=== PATIENT | female | born 1960 | race Two or more races ===

== ENCOUNTER 2019-01-17 09:34 | Inpatient (IN) | payer MEDICARE, OTHER ==
[~2019-01-17] VITALS: Ht 167.6 cm; Wt 124.7 kg
[2019-01-17] MEDS ORDERED: SODIUM CHLORIDE 0.9% 1,000 ML IV ONE ×2 (10:09)
[2019-01-17] MEDS ORDERED: PROMETHAZINE HCL 25 MG/ML 1ML IV ONE (10:15)
[2019-01-17 10:46] LABS: Basophils # (auto) 0 uL; Basophils % (auto) 0.2 % (0.0-2.0); Eosinophils # (auto) 0 uL; Eosinophils % (auto) 0.2 % (0.0-7.0); Hematocrit 48.5 % (36.0-46.0); Hemoglobin 16.5 g/dL (12.2-16.2); Lymphocytes # (auto) 0.6 uL; Lymphocytes % (auto) 6.5 % (10.0-50.0); Mean Corpuscular Hemoglobin 30.2 pg (28.0-32.0); Mean Corpuscular Hgb Conc. 34.1 g/dL (32.0-36.0); Mean Corpuscular Volume 88.5 fL (80.0-100.0); Monocytes # (auto) 0.6 uL; Monocytes % (auto) 6.4 % (0.0-12.0); Neutrophils # (auto) 7.9 uL; Neutrophils % (auto) 86.7 % (37.0-80.0); Platelet Count (auto) 147 10^3/uL (140-450); Red Blood Cells 5.48 10^6/uL (4.0-5.20); Red Cell Distribution Width 16.3 % (11.8-14.3); White Blood Cell 9.1 10^3/uL (4.4-10.8)
[2019-01-17 11:01] LABS: INR 1.23 (0.9-1.15); Partial Thromboplastin Time 39.9 sec (23.64-32.05)
[2019-01-17 11:04] LABS: Albumin 3.7 g/dL (3.4-5.0); BUN/Creatinine Ratio 32.3; Calcium 9.2 mg/dL (8.5-10.1); Potassium 4.2 mmol/L (3.5-5.1)
[2019-01-17 11:06] LABS: Bilirubin, Total 1.4 mg/dL (0.2-1.0); Total Protein 7.8 g/dL (6.4-8.2)
[2019-01-17] MEDS ORDERED: TEMAZEPAM 15 MG CAP PO PRN (16:15)
[2019-01-17] MEDS ORDERED: DEXTROSE (50%) 50ML SYRG IV PRN (16:15)
[2019-01-17] MEDS ORDERED: MORPHINE SULF INJ 2 MG/ML SYRINGE 1ML IV PRN (16:15)
[2019-01-17] MEDS ORDERED: NITROGLYCERIN 0.4 MG SL TAB SL PRN (16:15)
[2019-01-17] MEDS ORDERED: cefTRIAXone 1GM/50ML D5W 50 ML IV ONE (16:15)
[2019-01-17] MEDS ORDERED: MORPHINE SULFATE 4 MG/ML SYR/VIAL IV PRN (16:15)
[2019-01-17] MEDS ORDERED: ACETAMINOPHEN 500 MG TAB PO PRN (16:15)
[2019-01-17] MEDS: SODIUM CHLORIDE 0.9% 1,000 ML IV SCH ×2 (16:25→19:00)
[2019-01-17] MEDS: ACCU-CHEK COMFORT CURVE STRIP VI SCH ×2 (16:31→21:54)
[2019-01-17] MEDS: InsuLIN REG 1unit/0.01ml Soln (100units/ml) SC SCH ×2 (16:43→22:14)
[2019-01-17] MEDS: traMADol HCL 50 MG TAB PO PRN ×2 (16:56→23:55)
[2019-01-17] MEDS ORDERED: LABETALOL HCL 5 MG/ML ML 20ML VIAL IV PRN (17:00)
[2019-01-17] MEDS ORDERED: ENOXAPARIN SOD 80 MG/0.8ML SYRINGE SC ONE (17:00)
[2019-01-17] MEDS ORDERED: ALUM & MAG HYDROX-SIMETH LIQ(MAALOX) 30 ML PO ONE (17:00)
[2019-01-17] MEDS ORDERED: ENOXAPARIN SOD 80 MG/0.8ML SYRINGE SC SCH (17:08)
--- NOTE | 2019-01-17 18:42 | NUR ---
Patient Arrived On Unit Pt arrived on unit via ED via wheelchair. Pt able to ambulate to bed without difficulty. Addendum: 01/17/19 at 1857 by DORIS WELSH RN RN VS UPON ADMISSION 92% ON RA, 124 HR, RR16,BP OF 126/90, 6/10 PAIN LOCATED TO ABDOMEN PT IS 5'4
[2019-01-17 20:15] VITALS: BP 137/72
[2019-01-17] MEDS: metroNIDAZOLE 500MG/100ML 100 ML IV SCH (21:56)
[2019-01-17] MEDS: METOPROLOL TARTRATE 50 MG TAB PO SCH (21:56)
[2019-01-17] MEDS: HYDROXYCHLOROQUINE SULFATE 200 MG TAB PO SCH (21:57)
[2019-01-17 22:00] VITALS: BP 137/72
[2019-01-17] MEDS: ALUM & MAG HYDROX-SIMETH LIQ(MAALOX) 30 ML PO PRN (22:10)
[2019-01-18] MEDS: PROMETHAZINE HCL 25 MG/ML 1ML IV PRN ×3 (05:18→18:50)
--- NOTE | 2019-01-18 05:20 | NUR ---
IV insertion IV access obtained, via clean sterile technique by inserting 20 gauge catheter at right forearm on first attempt. IV secured properly. No trauma to site. Patient tolerated well. Addendum: 01/18/19 at 0527 by Chacha Urias RN Left forearm
--- NOTE | 2019-01-18 05:25 | NUR ---
IV removal IV 20g DC'd right wrist with clean sterile technique, catheter fully intact. Pressure dressing applied to site. Patient tolerated well.
[2019-01-18 06:01] LABS: Basophils # (auto) 0 uL; Basophils % (auto) 0.2 % (0.0-2.0); Eosinophils # (auto) 0.1 uL; Eosinophils % (auto) 0.9 % (0.0-7.0); Hematocrit 39.8 % (36.0-46.0); Hemoglobin 13.8 g/dL (12.2-16.2); Lymphocytes % (auto) 11.6 % (10.0-50.0); Mean Corpuscular Hemoglobin 30.7 pg (28.0-32.0); Mean Corpuscular Hgb Conc. 34.7 g/dL (32.0-36.0); Mean Corpuscular Volume 88.5 fL (80.0-100.0); Monocytes # (auto) 0.8 uL; Monocytes % (auto) 9.6 % (0.0-12.0); Neutrophils # (auto) 6.5 uL; Neutrophils % (auto) 77.7 % (37.0-80.0); Platelet Count (auto) 127 10^3/uL (140-450); Red Cell Distribution Width 15.9 % (11.8-14.3); White Blood Cell 8.3 10^3/uL (4.4-10.8)
[2019-01-18 06:27] LABS: Albumin 2.9 g/dL (3.4-5.0); BUN/Creatinine Ratio 37.8; Calcium 8.3 mg/dL (8.5-10.1); Potassium 4.4 mmol/L (3.5-5.1)
[2019-01-18 06:30] LABS: Bilirubin, Total 0.7 mg/dL (0.2-1.0); Total Protein 6.3 g/dL (6.4-8.2)
[2019-01-18] MEDS: InsuLIN REG 1unit/0.01ml Soln (100units/ml) SC SCH ×4 (06:38→22:00)
[2019-01-18] MEDS: ACCU-CHEK COMFORT CURVE STRIP VI SCH ×4 (06:38→22:25)
[2019-01-18] MEDS: metroNIDAZOLE 500MG/100ML 100 ML IV SCH ×3 (06:39→22:19)
[2019-01-18] MEDS: ENOXAPARIN SOD 80 MG/0.8ML SYRINGE SC SCH (06:39)
--- NOTE | 2019-01-18 07:40 | NUR ---
Opening Note Assumed pt care from NOC nurse. Pt is a/ox4 with no s/s of distress or SOB. Pt is currently laying upright in bed with no complaints at this time. Discussed POC with p; pt verbalized understanding. Safety measures maintained with call light within reach, bed in lowest position and side rails up. Will continue to monitor for changes q1hr and prn.
[2019-01-18] MEDS: SODIUM CHLORIDE 0.9% 1,000 ML IV SCH ×2 (08:09→16:41)
[2019-01-18 08:24] LABS: INR 1.23 (0.9-1.15)
[2019-01-18] MEDS: cefTRIAXone 1GM/50ML D5W 50 ML IV SCH (08:28)
--- NOTE | 2019-01-18 08:35 | NUR ---
Rapid Influenza A & B Sent To Lab
[2019-01-18 09:00] VITALS: BP 132/79
[2019-01-18] MEDS: HYDROXYCHLOROQUINE SULFATE 200 MG TAB PO SCH ×2 (09:27→22:19)
[2019-01-18] MEDS: METOPROLOL TARTRATE 50 MG TAB PO SCH ×2 (09:28→22:19)
[2019-01-18] MEDS: PANTOPRAZOLE 40 MG TAB PO SCH (09:28)
--- NOTE | 2019-01-18 11:40 | NUR ---
US TECH AT BEDSIDE FOR ECHO
--- NOTE | 2019-01-18 11:50 | NUR ---
Dr Boss at Bedside Spoke to pt about POC. New orders for stool sample. Provided pt with specimen cups. Pt instructed on need for samples; pt verbalized understanding.
[2019-01-18 13:00] VITALS: BP 127/69
--- NOTE | 2019-01-18 13:44 | NUR ---
ERYTHEMA NOTED UNDER PT'S BREASTS Erythema noted underneath both pt's breasts. Provided pt with z-guard cream. Will continue to monitor for changes. Pt states that the rash does not cause her pain at this time.
--- NOTE | 2019-01-18 13:44 | NUR ---
UA SENT TO LAB
[2019-01-18] MEDS: ALUM & MAG HYDROX-SIMETH LIQ(MAALOX) 30 ML PO PRN (14:31)
[2019-01-18] MEDS: traMADol HCL 50 MG TAB PO PRN (14:31)
[2019-01-18] MEDS: SUCRALFATE 1 GM/10 ML ORAL SUSP PO SCH ×2 (16:30→22:19)
[2019-01-18 16:39] LABS: Urine Bacteria FEW /hpf (None Seen); Urine Blood Negative /uL (Negative); Urine Specific Gravity 1.022 (1.001-1.035); Urine WBC 1 /hpf (0 - 5)
[2019-01-18 16:59] LABS: Alcohol, Urine < 3.0 mg/dL (0-5); Amphetamine Screen, Urine NEGATIVE (NEGATIVE); Barbiturate Scree,Urine NEGATIVE (NEGATIVE); Benzodiazephine Screen, Urine NEGATIVE (NEGATIVE); Cannabinoid Screen, Urine NEGATIVE (NEGATIVE); Cocaine Screen, Urine NEGATIVE (NEGATIVE); Opiate Scree,Urine NEGATIVE (NEGATIVE); Phencyclidine Screen, Urine NEGATIVE (NEGATIVE)
[2019-01-18 17:00] VITALS: BP 116/72
[2019-01-18 22:00] VITALS: BP 116/62
[2019-01-19] MEDS: traMADol HCL 50 MG TAB PO PRN (03:50)
[2019-01-19] MEDS: SODIUM CHLORIDE 0.9% 1,000 ML IV SCH ×4 (03:56→23:30)
[2019-01-19 05:00] VITALS: BP 110/58
[2019-01-19 06:08] LABS: Basophils # (auto) 0 uL; Basophils % (auto) 0.6 % (0.0-2.0); Eosinophils # (auto) 0.1 uL; Eosinophils % (auto) 1.4 % (0.0-7.0); Hematocrit 36.2 % (36.0-46.0); Hemoglobin 12.4 g/dL (12.2-16.2); Lymphocytes # (auto) 0.8 uL; Lymphocytes % (auto) 15.2 % (10.0-50.0); Mean Corpuscular Hemoglobin 30.5 pg (28.0-32.0); Mean Corpuscular Hgb Conc. 34.2 g/dL (32.0-36.0); Mean Corpuscular Volume 89.3 fL (80.0-100.0); Monocytes # (auto) 0.7 uL; Monocytes % (auto) 12.1 % (0.0-12.0); Neutrophils # (auto) 3.8 uL; Neutrophils % (auto) 70.7 % (37.0-80.0); Nucleated Red Blood Cells % 0.1 %; Platelet Count (auto) 111 10^3/uL (140-450); Red Blood Cells 4.06 10^6/uL (4.0-5.20); Red Cell Distribution Width 15.9 % (11.8-14.3); White Blood Cell 5.4 10^3/uL (4.4-10.8)
[2019-01-19 06:19] LABS: BUN/Creatinine Ratio 26.7; Calcium 8.2 mg/dL (8.5-10.1)
[2019-01-19] MEDS: ENOXAPARIN SOD 80 MG/0.8ML SYRINGE SC SCH (06:29)
[2019-01-19] MEDS: metroNIDAZOLE 500MG/100ML 100 ML IV SCH ×3 (06:29→21:50)
[2019-01-19] MEDS: SUCRALFATE 1 GM/10 ML ORAL SUSP PO SCH ×4 (06:30→21:48)
[2019-01-19] MEDS: InsuLIN REG 1unit/0.01ml Soln (100units/ml) SC SCH ×4 (06:36→21:51)
[2019-01-19] MEDS: ACCU-CHEK COMFORT CURVE STRIP VI SCH ×4 (06:36→21:50)
--- NOTE | 2019-01-19 07:38 | NUR ---
Opening Note Assumed pt care from [facility] nurse. Pt is a/ox4 with no s/s of distress or SOB. Pt is currently laying in bed with no complaints at this time. Pt instructed NPO after clear liquid breakfast for scheduled EGD today; pt verbalized understanding. Discussed POC with pt; Safety measures maintained with call light within reach, bed in lowest position and side rails up. Will continue to monitor for changes q1hr and prn.
[2019-01-19] MEDS: cefTRIAXone 1GM/50ML D5W 50 ML IV SCH (08:29)
[2019-01-19 09:00] VITALS: BP 125/64
[2019-01-19] MEDS: PANTOPRAZOLE 40 MG TAB PO SCH ×2 (09:52→21:50)
[2019-01-19] MEDS: METOPROLOL TARTRATE 50 MG TAB PO SCH ×2 (09:59→21:49)
[2019-01-19] MEDS: HYDROXYCHLOROQUINE SULFATE 200 MG TAB PO SCH ×2 (09:59→21:49)
--- NOTE | 2019-01-19 10:29 | NUR ---
DR BRIZUELA AT BEDSIDE ORDERS FOR MAIRA FOR PT'S CONGESTION. WILL IMPLEMENT AND CONTINUE TO MONITOR.
[2019-01-19] MEDS ORDERED: diphenhdrAMINE HCL 50 MG/1 ML VL ONE (11:00)
[2019-01-19] MEDS ORDERED: LIDOCAINE VISCOUS 2% 15ML UD ONE (11:00)
[2019-01-19] MEDS: Glucerna Carbsteady SHAKE Vanilla 8oz PO SCH ×2 (12:00→18:04)
[2019-01-19 13:00] VITALS: BP 141/67
[2019-01-19] MEDS: fentaNYL CITRATE 100 MCG/2 ML VL ONE ×2 (14:31→14:37)
[2019-01-19] MEDS: MIDAZOLAM HCL 5 MG/ML-1ML VIAL ONE ×2 (14:31→14:37)
--- NOTE | 2019-01-19 14:39 | NUR ---
PT TAKEN DOWN TO PRE-OP FOR EGD PT IS A/OX4 WITH NO S/S OF DISTRESS OR SOB
--- NOTE | 2019-01-19 15:15 | NUR ---
Patient Back On Unit from OR Pt back on unit. Pt is a/ox4 with no s/s of distress or SOB. Pt currently on 2L NC. Pt has generalized complaints of a sore-throat. Provided pt with jello, tea, as well as chicken-broth. Will continue to monitor.
[2019-01-19] MEDS: FEXOFENADINE HCL 60 MG TAB PO SCH ×2 (15:28→21:48)
[2019-01-19 17:00] VITALS: BP 123/70
--- NOTE | 2019-01-19 18:55 | NUR ---
IV Insertion and Removal 20G inserted to pt's R FA/Wrist. 2 attempts made. Clean sterile technique used and patient tolerated insertion well. IV to pt's L FA removed due to infiltration. Catheter removed fully intact, site is asymptomatic. Pressure applied to site for 3 minutes with gauze and then wrapped in coban. Pt instructed to keep dressing on for 30 minutes; pt verbalized understanding.
--- NOTE | 2019-01-19 19:30 | NUR ---
Opening Shift Note Assumed care of patient, pt is laying in bed awake, alert and oriented x 4. Respirations are normal and non-labored, no S/S of distress/ or SOB. Pt denies any pain at the moment and complaints of nausea. Instructed on POC and to call for assist, placed call light within reach and repositioned patient. Safety measures set in place, patient attach to alarm security or surveillance monitor and bed set at lowest position. Will continue to monitor for changes Q1hr and PRN. Signed: 01/19/19 at 2113 by MANN ANGULO SN <Co-Signature Required> Co-Signed: 01/19/19 at 2113 by Eri Sanford RN
[2019-01-19] MEDS: PROMETHAZINE HCL 25 MG/ML 1ML IV PRN (20:44)
[2019-01-19 21:00] VITALS: BP_SYST 123; BP_SYST 153; BP_DIAS 72
[2019-01-20 05:00] VITALS: BP 144/75
[2019-01-20] MEDS: SUCRALFATE 1 GM/10 ML ORAL SUSP PO SCH ×4 (06:16→21:54)
[2019-01-20] MEDS: ENOXAPARIN SOD 80 MG/0.8ML SYRINGE SC SCH (06:16)
[2019-01-20] MEDS: ACCU-CHEK COMFORT CURVE STRIP VI SCH ×4 (06:18→21:53)
[2019-01-20] MEDS: InsuLIN REG 1unit/0.01ml Soln (100units/ml) SC SCH ×4 (06:18→21:53)
[2019-01-20] MEDS: metroNIDAZOLE 500MG/100ML 100 ML IV SCH ×3 (06:18→21:54)
[2019-01-20 06:28] LABS: Hematocrit 36.3 % (36.0-46.0); Hemoglobin 12.4 g/dL (12.2-16.2); Mean Corpuscular Hemoglobin 30.4 pg (28.0-32.0); Mean Corpuscular Hgb Conc. 34.1 g/dL (32.0-36.0); Mean Corpuscular Volume 89.3 fL (80.0-100.0); Platelet Count (auto) 104 10^3/uL (140-450); Red Blood Cells 4.07 10^6/uL (4.0-5.20); White Blood Cell 4.4 10^3/uL (4.4-10.8)
[2019-01-20 06:43] LABS: BUN/Creatinine Ratio 18.8; Calcium 8.7 mg/dL (8.5-10.1)
[2019-01-20 06:48] LABS: Basophils % (manual) 0 (0.0-2.0); Blast Cells 0; Eosinophils % (manual) 0 (0-7); Myelocytes % 0; Promyelocytes % 0; Reactive Lymphocytes 0
[2019-01-20 07:24] LABS: Band Neutrophils % (manual) 1; Lymphocytes % (manual) 27 (10.0-50.0); Metamyelocytes % 1; Monocytes % (manual) 9 (0-12)
[2019-01-20] MEDS: cefTRIAXone 1GM/50ML D5W 50 ML IV SCH (07:53)
[2019-01-20 09:00] VITALS: BP 140/77
[2019-01-20] MEDS: FEXOFENADINE HCL 60 MG TAB PO SCH ×2 (09:39→21:54)
[2019-01-20] MEDS: PANTOPRAZOLE 40 MG TAB PO SCH ×2 (09:39→21:57)
[2019-01-20] MEDS: METOPROLOL TARTRATE 50 MG TAB PO SCH ×2 (09:40→21:56)
[2019-01-20] MEDS: HYDROXYCHLOROQUINE SULFATE 200 MG TAB PO SCH ×2 (09:41→21:56)
[2019-01-20] MEDS: Glucerna Carbsteady SHAKE Vanilla 8oz PO SCH ×3 (09:43→21:30)
--- NOTE | 2019-01-20 10:10 | NUR ---
DR. BRIZUELA WAS IN TO SEE PT AND MD LEFT NEW ORDERS. PT STATED THAT SHE IS STILL HAVING LOOSE STOOL. PT NOTED TO HAVE SOME DIFFICULTY GETTING OUT OF BED AT TIMES BUT WAS AMBULATING IN HER ROOM WITH STEADY GAIT. WILL CONTINUE TO MONITOR PT.
--- NOTE | 2019-01-20 11:02 | NUR ---
WOUND CARE NOTE: Wound care in to see patient per wound care request regarding skin integrity issue that are noted present on admission. Bedside nurse took photograph of patient's skin issue for reference. Patient is 58 y/o female with admitting diagnosis of Abd Pain, Gastroenteritis, Acute Kidney Injury. Patient is resting in bed in Rm. 249A. Patient is awake,alert and oriented. She's able to turn and reposition self. Her Raf score is 19. Patient's under breast has redness consistent with intertrigo, she receiving BID cleaning and application of Antifungal clear ointment. Patient's bilateral groin, inner thighs, inner buttocks and intragluteal fold has redness consistent with moisture associated skin damage. Patient reported that "it started few days ago, Saturday" she added that she's has diarrhea recently. Priya care given, applied Z Guard cream to patient's reddened skin to bilateral groin, thighs and inner buttocks. Patient tolerated well. Bed in low position, call cosme within reach with all safety precautions in placed. Patient and family education given regarding skin/wound care, verbalized understanding. RECOMMENDATION: BID/PRN cleaning and application of Antifungal clear ointment to under breast intertrigo; Z Guard cream to groins, thighs and inner buttocks moisture associated skin damage per MD order, redistribute pressure points with pillows,continue monitoring by wound care while patient is hospitalized Addendum: 01/20/19 at 1240 by Iliana Medel RN Amended: Links added.
[2019-01-20] MEDS: SODIUM CHLORIDE 0.9% 1,000 ML IV SCH (11:22)
[2019-01-20 13:00] VITALS: BP 133/81
--- NOTE | 2019-01-20 13:48 | NUR ---
NUTRITION ASSESSMENT NOTES Please refer to link notes of nutrition screen form filed under the intervention section of the plan of care for further details. Est. Needs based on AdBW (75 kg): 1500 kcal to 1850 kcal (20-25 kcal/kgAdBW), 75 gms to 90 gms pro (1.0-1.2 gms/kgAdBW). Will continue to monitor pertinent labs and reassess nutrient need prn Thank you. Addendum: 01/20/19 at [address] Amended: Links added.
--- NOTE | 2019-01-20 17:34 | NUR ---
PT REPORTS THAT SHE IS DOING FINE AND DOES NOT NEED P.T. INTERVENTION.
[2019-01-20 17:56] VITALS: BP 141/73
--- NOTE | 2019-01-20 19:00 | NUR ---
Opening Shift Note Assumed care of patient, awake and alert. No S/S of distress/SOB or pain. Instructed on POC and to call for assist PRN, will continue to monitor for changes Q1hr and PRN.
[2019-01-20 21:00] VITALS: BP 141/80
--- NOTE | 2019-01-20 21:59 | NUR ---
Patient refused 2200 accu-check and insulin. Patient stated, "I am not diabetic and I never will be diabetic". Patient informed RN she will not want her 0700 accu-check or insulin as well. RN provided teaching to patient in regards to orders and BS checks. Patient verbalized understanding and proceeded with not wanting her BS checked.
[2019-01-21] MEDS: SODIUM CHLORIDE 0.9% 1,000 ML IV SCH ×3 (00:09→16:09)
[2019-01-21 05:00] VITALS: BP 152/88
[2019-01-21] MEDS: metroNIDAZOLE 500MG/100ML 100 ML IV SCH ×2 (05:50→14:00)
[2019-01-21] MEDS ORDERED: ENOXAPARIN SOD 120 MG/0.8 ML SYRINGE SC SCH (06:00)
[2019-01-21] MEDS: SUCRALFATE 1 GM/10 ML ORAL SUSP PO SCH ×3 (06:31→17:00)
[2019-01-21] MEDS: ACCU-CHEK COMFORT CURVE STRIP VI SCH ×3 (06:32→17:00)
[2019-01-21] MEDS: InsuLIN REG 1unit/0.01ml Soln (100units/ml) SC SCH ×3 (06:32→17:00)
[2019-01-21 07:27] LABS: Hematocrit 37.3 % (36.0-46.0); Hemoglobin 12.7 g/dL (12.2-16.2); Mean Corpuscular Hemoglobin 30.5 pg (28.0-32.0); Mean Corpuscular Hgb Conc. 34.1 g/dL (32.0-36.0); Mean Corpuscular Volume 89.3 fL (80.0-100.0); Platelet Count (auto) 132 10^3/uL (140-450); Red Blood Cells 4.17 10^6/uL (4.0-5.20); Red Cell Distribution Width 15.8 % (11.8-14.3); White Blood Cell 5.4 10^3/uL (4.4-10.8)
[2019-01-21 07:41] LABS: Calcium 8.5 mg/dL (8.5-10.1); Potassium 3.8 mmol/L (3.5-5.1)
[2019-01-21 07:45] LABS: BUN/Creatinine Ratio 12.7
[2019-01-21 07:58] LABS: Basophils % (manual) 0 (0.0-2.0); Blast Cells 0; Myelocytes % 0; Promyelocytes % 0; Reactive Lymphocytes 0
[2019-01-21 08:00] VITALS: BP 167/83
[2019-01-21] MEDS: Glucerna Carbsteady SHAKE Vanilla 8oz PO SCH ×2 (08:00→12:00)
[2019-01-21 08:49] LABS: Band Neutrophils % (manual) 2; Eosinophils % (manual) 3 (0-7); Lymphocytes % (manual) 23 (10.0-50.0); Metamyelocytes % 1; Monocytes % (manual) 14 (0-12)
[2019-01-21 09:00] VITALS: BP 167/83
[2019-01-21] MEDS: HYDROXYCHLOROQUINE SULFATE 200 MG TAB PO SCH (09:19)
[2019-01-21] MEDS: FEXOFENADINE HCL 60 MG TAB PO SCH (09:19)
[2019-01-21] MEDS: PANTOPRAZOLE 40 MG TAB PO SCH (09:19)
[2019-01-21] MEDS: cefTRIAXone 1GM/50ML D5W 50 ML IV SCH (09:20)
[2019-01-21] MEDS: METOPROLOL TARTRATE 50 MG TAB PO SCH (09:20)
[2019-01-21 11:13] VITALS: BP 167/83
[2019-01-21 13:00] VITALS: BP 145/67
--- NOTE | 2019-01-21 13:57 | NUR ---
DISCHARGE NOTE PATIENT ALERT AND ORIENTED X4 ALL DISCHARGE INSTRUCTIONS GIVEN ALL QUESTIONS AND CONCERNS ADDRESSED. PATIENT STATED HER RIDE WILL NOT BE ABLE TO COME TILL 4:00PM. PATIENT DENIES ANY DISTRESS OR SOB AT THIS TIME. [facility] FILLING PATIENT PRESCRIPTIONS. WILL CONTINUE TO MONITOR TILL PATIENT RIDE ARRIVES
[2019-01-21 17:00] VITALS: BP 141/69
--- NOTE | 2019-01-21 17:00 | NUR ---
PATIENT STILL WAITING FOR TECHNICAL SME. PATIENT ASKED IF IV CAN BE REMOVED AND TELEBOX TO BE REMOVED. IV REMOVED USING [employer] TECHNIQUE PRESSURE DRESSING APPLIED PATIENT VERBALIZED UNDERSTANDING. TELEBOX REMOVED CLEANED AND SENT TO ICU
--- NOTE | 2019-01-21 17:42 | NUR ---
PATIENTS TRANSPORTATION ARRIVED PATIENT ALERT AND ORIENTED X4 SHE HAS HER PRESCRIPTIONS, AND DISCHARGE PAPER WORK ALL QUESTIONS AND CONCERNS ADDRESSED AND ANSWERED. IV REMOVED, TELEBOX REMOVED CLEANED AND SENT TO ICU. PATIENT DENIES ALL SOB PAIN OR DISTRESS. ASSISTED TO PERSONAL VEHICLE USING WHEELCHAIR.
== END 2019-01-21 17:40 | disposition home or self-care (01) | DRG 391 ==
LOC: EDBD 09:34 → ER 09:34 → TELE 09:35 → TELE-EAST 18:54
PROVIDERS: ADMIT Internal Medicine; ATTEND Internal Medicine
PROC: 0DB68ZX Excision of Stomach, Via Natural or Artificial Opening Endoscopic, Diagnostic (ICD-10-PCS; 2019-01-19)
PROC: 0DB58ZX Excision of Esophagus, Via Natural or Artificial Opening Endoscopic, Diagnostic (ICD-10-PCS; 2019-01-19)
PROC: 0DB98ZX Excision of Duodenum, Via Natural or Artificial Opening Endoscopic, Diagnostic (ICD-10-PCS; principal; 2019-01-19 14:29)
DX: K52.9 Noninfective gastroenteritis and colitis, unspecified (principal); G93.41 Metabolic encephalopathy; I82.221 Chronic embolism and thrombosis of inferior vena cava; N17.9 Acute kidney failure, unspecified; D68.61 Antiphospholipid syndrome; E44.0 Moderate protein-calorie malnutrition; E87.1 Hypo-osmolality and hyponatremia; I13.0 Hypertensive heart and chronic kidney disease with heart failure and stage 1 through stage 4 chronic kidney disease, or unspecified chronic kidney disease; Z68.41 Body mass index [BMI] 40.0-44.9, adult; K26.9 Duodenal ulcer, unspecified as acute or chronic, without hemorrhage or perforation; K29.80 Duodenitis without bleeding; K20.9 Esophagitis, unspecified; R00.0 Tachycardia, unspecified; I50.9 Heart failure, unspecified; D17.9 Benign lipomatous neoplasm, unspecified; D17.71 Benign lipomatous neoplasm of kidney; N26.1 Atrophy of kidney (terminal); E86.0 Dehydration; N18.9 Chronic kidney disease, unspecified; R13.10 Dysphagia, unspecified; Z86.718 Personal history of other venous thrombosis and embolism; Z86.73 Personal history of transient ischemic attack (TIA), and cerebral infarction without residual deficits; Z88.0 Allergy status to penicillin; Z90.49 Acquired absence of other specified parts of digestive tract; Z90.710 Acquired absence of both cervix and uterus
CPT/HCPCS: 36415; 43239; 70450; 71045; 74176; 76775; 80048; 80053; 80307; 81001; 82150; 82550; 82962; 83036; 83690; 83880; 84443; 84484; 85007; 85025; 85027; 85379; 85610; 85652; 85730; 87045; 87427; 87493; 87804; 93306; 93971; 96361; 96365; 96372; 96375; 99291; G0378; J0696; J1815; J2250; J3490